=== PATIENT | female | born 2000 | race Two or more races ===

== ENCOUNTER 2021-02-26 09:25 | Emergency (ER) | payer MEDICAID, OTHER ==
[~2021-02-26] VITALS: Ht 160 cm; Wt 59.9 kg
[2021-02-26 09:51] VITALS: BP 139/88
== END 2021-02-26 10:32 | disposition home or self-care (01) ==
LOC: ER 09:25
DX: R10.2 Pelvic and perineal pain (principal); Z30.432 Encounter for removal of intrauterine contraceptive device

== ENCOUNTER 2021-05-28 17:08 | Emergency (ER) | payer MEDICAID ==
[~2021-05-28] VITALS: Ht 160 cm; Wt 57.6 kg
[2021-05-28 19:43] LABS: Basophils # (auto) 0 10 ^3/uL (0-0.2); Basophils % (auto) 0.5 % (0.0-2.0); Eosinophils # (auto) 0.2 10 ^3/uL (0-0.8); Eosinophils % (auto) 1.9 % (0.0-7.0); Hematocrit 38.2 % (36.0-46.0); Hemoglobin 13.2 g/dL (12.2-16.2); Lymphocytes # (auto) 1.8 10 ^3/uL (0.4-5.4); Lymphocytes % (auto) 21.2 % (10.0-50.0); Mean Corpuscular Hemoglobin 30.7 pg (28.0-32.0); Mean Corpuscular Hgb Conc. 34.5 g/dL (32.0-36.0); Monocytes # (auto) 0.5 10 ^3/uL (0-1.3); Monocytes % (auto) 6.3 % (0.0-12.0); Neutrophils % (auto) 70.1 % (37.0-80.0); Nucleated Red Blood Cells % 0.1 %; Red Blood Cells 4.29 10^6/uL (4.0-5.20); Red Cell Distribution Width 14.5 % (11.8-14.3); White Blood Cell 8.5 10^3/uL (4.4-10.8)
[2021-05-28 19:59] LABS: BUN/Creatinine Ratio 15.7; Potassium 3.8 mmol/L (3.5-5.1)
[2021-05-28 22:55] LABS: Urine Bacteria NONE SEEN /hpf (None Seen); Urine Blood Negative /uL (Negative); Urine Specific Gravity 1.001 (1.001-1.035); Urine WBC <1 /hpf (0 - 5)
[2021-05-28 23:15] LABS: Alcohol, Urine < 3.0 mg/dL (0-10); Amphetamine Screen, Urine NEGATIVE (NEGATIVE); Barbiturate Scree,Urine NEGATIVE (NEGATIVE); Benzodiazephine Screen, Urine NEGATIVE (NEGATIVE); Cannabinoid Screen, Urine NEGATIVE (NEGATIVE); Cocaine Screen, Urine NEGATIVE (NEGATIVE); Opiate Scree,Urine NEGATIVE (NEGATIVE); Phencyclidine Screen, Urine NEGATIVE (NEGATIVE)
[2021-05-28 23:53] VITALS: BP 117/79
== END 2021-05-29 01:04 | disposition home or self-care (01) ==
LOC: ER 17:08
DX: R33.9 Retention of urine, unspecified (principal); Z87.442 Personal history of urinary calculi
CPT/HCPCS: 36415; 76775; 80048; 80307; 81001; 84702; 85025

== ENCOUNTER 2021-11-15 13:59 | Inpatient (IN) | payer MEDICAID ==
[~2021-11-15] VITALS: Ht 157.5 cm; Wt 65.0 kg
[2021-11-15 14:46] LABS: Urine Bacteria NONE SEEN /hpf (None Seen); Urine Blood TRACE /uL (Negative); Urine Mucus MODERATE (None Seen); Urine Specific Gravity 1.023 (1.001-1.035); Urine WBC 70 /hpf (0 - 5)
[2021-11-15] MEDS ORDERED: MORPHINE SULFATE 4 MG/ML SYR/VIAL IV STA (15:11)
[2021-11-15] MEDS ORDERED: LACTATED RINGER'S 1,000 ML IV ONE (15:15)
[2021-11-15] MEDS ORDERED: IOHEXOL 300 MG/ML 100ML BOTTLE IJ ONE (15:29)
[2021-11-15 15:30] LABS: Basophils # (auto) 0 10 ^3/uL (0-0.2); Basophils % (auto) 0.3 % (0.0-2.0); Eosinophils # (auto) 0.1 10 ^3/uL (0-0.8); Eosinophils % (auto) 0.5 % (0.0-7.0); Hematocrit 41.4 % (36.0-46.0); Hemoglobin 13.5 g/dL (12.2-16.2); Lymphocytes # (auto) 1.4 10 ^3/uL (0.4-5.4); Lymphocytes % (auto) 11.6 % (10.0-50.0); Mean Corpuscular Hemoglobin 29.2 pg (28.0-32.0); Mean Corpuscular Hgb Conc. 32.7 g/dL (32.0-36.0); Mean Corpuscular Volume 89.3 fL (80.0-100.0); Monocytes # (auto) 0.4 10 ^3/uL (0-1.3); Monocytes % (auto) 3.3 % (0.0-12.0); Neutrophils # (auto) 10.3 10 ^3/uL (1.6-8.6); Neutrophils % (auto) 84.3 % (37.0-80.0); Red Blood Cells 4.63 10^6/uL (4.0-5.20); Red Cell Distribution Width 13.3 % (11.8-14.3); White Blood Cell 12.3 10^3/uL (4.4-10.8)
[2021-11-15 15:42] LABS: Albumin 4.4 g/dL (3.4-5.0); Magnesium 2.3 mg/dL (1.6-2.6); Potassium 4.1 mmol/L (3.5-5.1)
[2021-11-15 15:46] LABS: BUN/Creatinine Ratio 14.7; Bilirubin, Total 0.4 mg/dL (0.2-1.0); Total Protein 8.5 g/dL (6.4-8.2)
[2021-11-15 15:48] LABS: INR 0.94 (0.9-1.15); Partial Thromboplastin Time 27.6 sec (24.6-33.4)
[2021-11-15] MEDS: ONDANSETRON HCL 4 MG/2 ML VIAL IV SCH (15:53)
[2021-11-15] MEDS ORDERED: MORPHINE SULFATE 4 MG/ML SYR/VIAL IV ONE (18:00)
[2021-11-15] MEDS ORDERED: KETOROLAC TROMETH 30 MG/ML 1ML VIAL IV ONE (18:00)
[2021-11-15] MEDS ORDERED: CEFTRIAXONE SODIUM 2 GM in D5W 5% 50 ML IV ONE (19:00)
[2021-11-15] MEDS ORDERED: TAMSULOSIN HYDROCHLORIDE 0.4 MG CAP PO ONE (19:00)
[2021-11-15] MEDS ORDERED: ACETAMINOPHEN 325 MG TAB PO PRN (21:45)
[2021-11-15] MEDS ORDERED: MORPHINE SULFATE INJ 2 MG/ml SYRG IV PRN ×2 (21:45→22:15)
[2021-11-15] MEDS ORDERED: HYDROcodone-ACET 5/325MG TAB PO PRN (21:45)
[2021-11-15] MEDS: SODIUM CHLOR 0.9% PF (SALINE LOCK) 10ML VIAL/SYR IV SCH (22:00)
[2021-11-15] MEDS ORDERED: NITROGLYCERIN 0.4 MG SL TAB SL PRN (22:15)
[2021-11-15 22:59] VITALS: BP 110/66
[2021-11-16] MEDS: ONDANSETRON HCL 4 MG/2 ML VIAL IV SCH ×5 (02:00→17:35)
[2021-11-16 05:00] VITALS: BP 102/61
[2021-11-16 06:31] LABS: Basophils # (auto) 0 10 ^3/uL (0-0.2); Basophils % (auto) 0.3 % (0.0-2.0); Eosinophils # (auto) 0.2 10 ^3/uL (0-0.8); Eosinophils % (auto) 1.9 % (0.0-7.0); Hematocrit 35.6 % (36.0-46.0); Hemoglobin 11.9 g/dL (12.2-16.2); Lymphocytes # (auto) 2.5 10 ^3/uL (0.4-5.4); Mean Corpuscular Hemoglobin 29.7 pg (28.0-32.0); Mean Corpuscular Hgb Conc. 33.5 g/dL (32.0-36.0); Mean Corpuscular Volume 88.4 fL (80.0-100.0); Monocytes # (auto) 0.6 10 ^3/uL (0-1.3); Monocytes % (auto) 7.1 % (0.0-12.0); Neutrophils # (auto) 4.8 10 ^3/uL (1.6-8.6); Neutrophils % (auto) 59.7 % (37.0-80.0); Red Blood Cells 4.02 10^6/uL (4.0-5.20); Red Cell Distribution Width 13.2 % (11.8-14.3); White Blood Cell 8.1 10^3/uL (4.4-10.8)
[2021-11-16 06:48] LABS: Albumin 3.3 g/dL (3.4-5.0); Calcium 8.7 mg/dL (8.5-10.1)
[2021-11-16 06:51] LABS: BUN/Creatinine Ratio 19.7
[2021-11-16 06:53] LABS: Bilirubin, Total 0.4 mg/dL (0.2-1.0); Total Protein 6.3 g/dL (6.4-8.2)
[2021-11-16] MEDS: SODIUM CHLOR 0.9% PF (SALINE LOCK) 10ML VIAL/SYR IV SCH ×2 (06:59→17:12)
[2021-11-16 08:30] VITALS: BP 98/52
[2021-11-16 14:06] VITALS: BP 106/62
[2021-11-16 16:56] VITALS: BP 105/68
[2021-11-16] MEDS: TAMSULOSIN HYDROCHLORIDE 0.4 MG CAP PO SCH (17:35)
[2021-11-16 21:46] VITALS: BP 112/72
[2021-11-17] MEDS: SODIUM CHLOR 0.9% PF (SALINE LOCK) 10ML VIAL/SYR IV SCH ×4 (00:31→21:13)
[2021-11-17] MEDS: ONDANSETRON HCL 4 MG/2 ML VIAL IV SCH ×5 (02:00→18:00)
[2021-11-17 04:49] VITALS: BP 112/74
[2021-11-17 09:00] VITALS: BP 100/56
[2021-11-17] MEDS: cefTRIAXone 1GM/50ML D5W 50 ML IV SCH ×2 (10:26→20:55)
[2021-11-17 13:00] VITALS: BP 110/63
[2021-11-17 17:00] VITALS: BP 117/72
[2021-11-17] MEDS: TAMSULOSIN HYDROCHLORIDE 0.4 MG CAP PO SCH (18:28)
[2021-11-17 22:00] VITALS: BP 118/79
[2021-11-18] VITALS (11 sets, daily range): BP systolic 105–121; BP diastolic 68–83
[2021-11-18] MEDS: ONDANSETRON HCL 4 MG/2 ML VIAL IV SCH ×4 (02:00→14:00)
[2021-11-18 05:14] LABS: Potassium 4.3 mmol/L (3.5-5.1)
[2021-11-18 05:15] LABS: Calcium 8.8 mg/dL (8.5-10.1)
[2021-11-18 05:16] LABS: BUN/Creatinine Ratio 24.6
[2021-11-18] MEDS: SODIUM CHLOR 0.9% PF (SALINE LOCK) 10ML VIAL/SYR IV SCH ×3 (05:21→21:29)
[2021-11-18] MEDS ORDERED: fentaNYL CITRATE 100 MCG/2 ML VL ONE ×2 (11:13→12:08)
[2021-11-18] MEDS ORDERED: IODIXANOL 320MG/ML 100ML BTL IV ONE (11:14)
[2021-11-18] MEDS ORDERED: LIDOCAINE 2%HCL (LOCAL ANESTH.) INJ 20ML MDV ONE (11:14)
[2021-11-18] MEDS ORDERED: MIDAZOLAM HCL 2MG/2ML 2ml VIAL (1mg/ml) ONE ×2 (11:14→12:08)
[2021-11-18] MEDS: cefTRIAXone 1GM/50ML D5W 50 ML IV SCH (18:44)
[2021-11-18] MEDS: TAMSULOSIN HYDROCHLORIDE 0.4 MG CAP PO SCH (18:44)
[2021-11-18] MEDS: HYDROmorphone HCL 2 MG/ML VL/or syr IV PRN (19:01)
[2021-11-18] MEDS: ONDANSETRON HCL 4 MG/2 ML VIAL IV PRN (21:37)
[2021-11-19] MEDS: HYDROmorphone HCL 2 MG/ML VL/or syr IV PRN ×4 (02:50→22:00)
[2021-11-19 05:00] VITALS: BP 102/57
[2021-11-19] MEDS: SODIUM CHLOR 0.9% PF (SALINE LOCK) 10ML VIAL/SYR IV SCH ×3 (05:01→21:57)
[2021-11-19 08:00] VITALS: BP 114/72
[2021-11-19 09:00] VITALS: BP 114/73
[2021-11-19 10:47] LABS: Basophils # (auto) 0 10 ^3/uL (0-0.2); Basophils % (auto) 0.4 % (0.0-2.0); Eosinophils # (auto) 0.2 10 ^3/uL (0-0.8); Eosinophils % (auto) 2.9 % (0.0-7.0); Hemoglobin 12.4 g/dL (12.2-16.2); Lymphocytes # (auto) 2.2 10 ^3/uL (0.4-5.4); Lymphocytes % (auto) 26.1 % (10.0-50.0); Mean Corpuscular Hgb Conc. 33.6 g/dL (32.0-36.0); Mean Corpuscular Volume 89.3 fL (80.0-100.0); Monocytes # (auto) 0.6 10 ^3/uL (0-1.3); Monocytes % (auto) 6.6 % (0.0-12.0); Neutrophils # (auto) 5.4 10 ^3/uL (1.6-8.6); Nucleated Red Blood Cells % 0.1 %; Red Blood Cells 4.14 10^6/uL (4.0-5.20); Red Cell Distribution Width 12.9 % (11.8-14.3); White Blood Cell 8.5 10^3/uL (4.4-10.8)
[2021-11-19 10:52] LABS: Potassium 3.4 mmol/L (3.5-5.1)
[2021-11-19 11:08] LABS: Albumin 3.3 g/dL (3.4-5.0); BUN/Creatinine Ratio 11.9; Bilirubin, Total 0.2 mg/dL (0.2-1.0); Total Protein 7.1 g/dL (6.4-8.2)
[2021-11-19 12:30] VITALS: BP 104/60
[2021-11-19 16:47] VITALS: BP 100/59
[2021-11-19] MEDS: TAMSULOSIN HYDROCHLORIDE 0.4 MG CAP PO SCH (18:20)
[2021-11-19] MEDS: cefTRIAXone 1GM/50ML D5W 50 ML IV SCH (18:20)
[2021-11-19 22:00] VITALS: BP 108/65
[2021-11-19] MEDS: ONDANSETRON HCL 4 MG/2 ML VIAL IV PRN (23:45)
[2021-11-20 05:27] VITALS: BP 106/65
[2021-11-20] MEDS: SODIUM CHLOR 0.9% PF (SALINE LOCK) 10ML VIAL/SYR IV SCH ×3 (06:11→22:00)
[2021-11-20] MEDS: ONDANSETRON HCL 4 MG/2 ML VIAL IV PRN (06:34)
[2021-11-20] MEDS: HYDROmorphone HCL 2 MG/ML VL/or syr IV PRN (06:35)
[2021-11-20 08:30] VITALS: BP 97/57
[2021-11-20 09:00] VITALS: BP 97/57
[2021-11-20] MEDS ORDERED: HYDROcodone-ACET 10/325MG TAB PO PRN (11:45)
[2021-11-20] MEDS ORDERED: KETOROLAC TROMETH 30 MG/ML 1ML VIAL IV PRN (11:45)
[2021-11-20 13:00] VITALS: BP 112/66
[2021-11-20 13:20] LABS: Basophils # (auto) 0 10 ^3/uL (0-0.2); Basophils % (auto) 0.6 % (0.0-2.0); Eosinophils # (auto) 0.3 10 ^3/uL (0-0.8); Eosinophils % (auto) 4.7 % (0.0-7.0); Hematocrit 39.5 % (36.0-46.0); Hemoglobin 13.1 g/dL (12.2-16.2); Lymphocytes # (auto) 2.3 10 ^3/uL (0.4-5.4); Lymphocytes % (auto) 31.1 % (10.0-50.0); Mean Corpuscular Hemoglobin 30.1 pg (28.0-32.0); Mean Corpuscular Hgb Conc. 33.3 g/dL (32.0-36.0); Mean Corpuscular Volume 90.4 fL (80.0-100.0); Monocytes # (auto) 0.5 10 ^3/uL (0-1.3); Monocytes % (auto) 6.5 % (0.0-12.0); Neutrophils # (auto) 4.2 10 ^3/uL (1.6-8.6); Neutrophils % (auto) 57.1 % (37.0-80.0); Nucleated Red Blood Cells % 0.1 %; Red Blood Cells 4.36 10^6/uL (4.0-5.20); Red Cell Distribution Width 13.3 % (11.8-14.3); White Blood Cell 7.4 10^3/uL (4.4-10.8)
[2021-11-20 14:06] LABS: Calcium 8.4 mg/dL (8.5-10.1); Potassium 3.9 mmol/L (3.5-5.1)
[2021-11-20 14:10] LABS: BUN/Creatinine Ratio 14.9
[2021-11-20] MEDS: HYDROcodone-ACET 10/325MG TAB PO PRN ×2 (15:43→20:05)
[2021-11-20] MEDS: SODIUM CHLORIDE 0.9% 1,000 ML IV SCH ×2 (15:44→21:45)
[2021-11-20 17:00] VITALS: BP 117/70
[2021-11-20] MEDS: TAMSULOSIN HYDROCHLORIDE 0.4 MG CAP PO SCH (18:01)
[2021-11-20] MEDS: cefTRIAXone 1GM/50ML D5W 50 ML IV SCH (18:01)
[2021-11-20 21:48] VITALS: BP 119/66
[2021-11-21] MEDS: HYDROcodone-ACET 10/325MG TAB PO PRN ×3 (01:33→17:02)
[2021-11-21 04:48] VITALS: BP 115/51
[2021-11-21] MEDS: SODIUM CHLOR 0.9% PF (SALINE LOCK) 10ML VIAL/SYR IV SCH ×3 (06:12→21:44)
[2021-11-21] MEDS: SODIUM CHLORIDE 0.9% 1,000 ML IV SCH ×2 (07:45→17:01)
[2021-11-21 08:00] VITALS: BP 118/75
[2021-11-21 09:00] VITALS: BP 118/75
[2021-11-21] MEDS ORDERED: LACTULOSE 20Gm/30ML SOLN PO ONE (10:45)
[2021-11-21] MEDS ORDERED: ZOLPIDEM TARTRATE 5 MG TAB PO PRN (10:45)
[2021-11-21] MEDS ORDERED: DOCUSATE SOD 100 MG CAP PO ONE (10:45)
[2021-11-21] MEDS ORDERED: HYDROcodone-ACET 10/325MG TAB PO PRN (11:00)
[2021-11-21] MEDS: KETOROLAC TROMETH 30 MG/ML 1ML VIAL IV PRN ×2 (12:54→18:40)
[2021-11-21 13:00] VITALS: BP 108/79
[2021-11-21 17:00] VITALS: BP 111/69
[2021-11-21] MEDS: TAMSULOSIN HYDROCHLORIDE 0.4 MG CAP PO SCH (18:31)
[2021-11-21] MEDS: cefTRIAXone 1GM/50ML D5W 50 ML IV SCH (18:40)
[2021-11-21] MEDS ORDERED: SODIUM CHLORIDE 0.9% 1,900 ML IV ONE (19:00)
[2021-11-21] MEDS: DOCUSATE SOD 100 MG CAP PO SCH (21:44)
[2021-11-21 22:00] VITALS: BP 110/71
[2021-11-22] MEDS: SODIUM CHLORIDE 0.9% 1,000 ML IV SCH ×2 (00:15→15:09)
[2021-11-22] MEDS: KETOROLAC TROMETH 30 MG/ML 1ML VIAL IV PRN ×4 (01:02→21:24)
[2021-11-22 05:00] VITALS: BP 104/65
[2021-11-22] MEDS: SODIUM CHLOR 0.9% PF (SALINE LOCK) 10ML VIAL/SYR IV SCH ×3 (05:25→21:24)
[2021-11-22 06:31] LABS: Basophils # (auto) 0 10 ^3/uL (0-0.2); Basophils % (auto) 0.6 % (0.0-2.0); Eosinophils # (auto) 0.4 10 ^3/uL (0-0.8); Hematocrit 34.2 % (36.0-46.0); Hemoglobin 11.4 g/dL (12.2-16.2); Lymphocytes # (auto) 1.8 10 ^3/uL (0.4-5.4); Lymphocytes % (auto) 28.4 % (10.0-50.0); Mean Corpuscular Hgb Conc. 33.5 g/dL (32.0-36.0); Mean Corpuscular Volume 89.5 fL (80.0-100.0); Monocytes # (auto) 0.4 10 ^3/uL (0-1.3); Monocytes % (auto) 6.9 % (0.0-12.0); Neutrophils # (auto) 3.6 10 ^3/uL (1.6-8.6); Neutrophils % (auto) 57.1 % (37.0-80.0); Red Blood Cells 3.82 10^6/uL (4.0-5.20); Red Cell Distribution Width 13.3 % (11.8-14.3); White Blood Cell 6.3 10^3/uL (4.4-10.8)
[2021-11-22 07:00] LABS: Potassium 4.2 mmol/L (3.5-5.1)
[2021-11-22 07:04] LABS: BUN/Creatinine Ratio 17.3; Calcium 8.2 mg/dL (8.5-10.1)
[2021-11-22] MEDS: DOCUSATE SOD 100 MG CAP PO SCH ×2 (08:58→21:24)
[2021-11-22 09:00] VITALS: BP 114/76
[2021-11-22] MEDS: HYDROcodone-ACET 10/325MG TAB PO PRN ×2 (10:17→17:08)
[2021-11-22 13:00] VITALS: BP 112/75
[2021-11-22 16:59] VITALS: BP 96/48
[2021-11-22] MEDS: TAMSULOSIN HYDROCHLORIDE 0.4 MG CAP PO SCH (18:00)
[2021-11-22] MEDS: cefTRIAXone 1GM/50ML D5W 50 ML IV SCH (18:00)
[2021-11-22 22:00] VITALS: BP 112/66
[2021-11-23] MEDS: HYDROcodone-ACET 10/325MG TAB PO PRN ×4 (00:35→20:28)
[2021-11-23] MEDS: SODIUM CHLORIDE 0.9% 1,000 ML IV SCH ×3 (00:40→20:32)
[2021-11-23] MEDS: KETOROLAC TROMETH 30 MG/ML 1ML VIAL IV PRN ×4 (03:42→23:15)
[2021-11-23 05:00] VITALS: BP 105/65
[2021-11-23] MEDS: SODIUM CHLOR 0.9% PF (SALINE LOCK) 10ML VIAL/SYR IV SCH ×3 (05:03→20:32)
[2021-11-23 05:20] LABS: Basophils # (auto) 0 10 ^3/uL (0-0.2); Basophils % (auto) 0.5 % (0.0-2.0); Eosinophils # (auto) 0.4 10 ^3/uL (0-0.8); Eosinophils % (auto) 6.7 % (0.0-7.0); Hematocrit 33.1 % (36.0-46.0); Hemoglobin 11.3 g/dL (12.2-16.2); Lymphocytes # (auto) 2.3 10 ^3/uL (0.4-5.4); Lymphocytes % (auto) 33.9 % (10.0-50.0); Mean Corpuscular Hemoglobin 30.6 pg (28.0-32.0); Mean Corpuscular Hgb Conc. 34.2 g/dL (32.0-36.0); Mean Corpuscular Volume 89.4 fL (80.0-100.0); Monocytes # (auto) 0.4 10 ^3/uL (0-1.3); Monocytes % (auto) 6.7 % (0.0-12.0); Neutrophils # (auto) 3.5 10 ^3/uL (1.6-8.6); Neutrophils % (auto) 52.2 % (37.0-80.0); Nucleated Red Blood Cells % 0.2 %; Red Blood Cells 3.71 10^6/uL (4.0-5.20); Red Cell Distribution Width 13.3 % (11.8-14.3); White Blood Cell 6.7 10^3/uL (4.4-10.8)
[2021-11-23 05:46] LABS: Calcium 8.1 mg/dL (8.5-10.1)
[2021-11-23 05:49] LABS: BUN/Creatinine Ratio 15.7
[2021-11-23 09:00] VITALS: BP 114/73
[2021-11-23] MEDS: DOCUSATE SOD 100 MG CAP PO SCH ×2 (09:04→20:28)
[2021-11-23] MEDS: ONDANSETRON HCL 4 MG/2 ML VIAL IV PRN (09:12)
[2021-11-23 13:00] VITALS: BP 98/58
[2021-11-23 17:00] VITALS: BP 115/70
[2021-11-23] MEDS: TAMSULOSIN HYDROCHLORIDE 0.4 MG CAP PO SCH (17:14)
[2021-11-23] MEDS: cefTRIAXone 1GM/50ML D5W 50 ML IV SCH (17:14)
[2021-11-23 21:30] VITALS: BP 115/70
[2021-11-24] MEDS: HYDROcodone-ACET 10/325MG TAB PO PRN ×2 (02:28→09:30)
[2021-11-24 05:00] VITALS: BP 99/58
[2021-11-24] MEDS: KETOROLAC TROMETH 30 MG/ML 1ML VIAL IV PRN (05:26)
[2021-11-24] MEDS: SODIUM CHLORIDE 0.9% 1,000 ML IV SCH (05:36)
[2021-11-24] MEDS: SODIUM CHLOR 0.9% PF (SALINE LOCK) 10ML VIAL/SYR IV SCH (05:37)
[2021-11-24] MEDS: DOCUSATE SOD 100 MG CAP PO SCH (08:44)
[2021-11-24 09:00] VITALS: BP 114/73
[2021-11-24] MEDS ORDERED: LACTULOSE 20Gm/30ML SOLN PO ONE (10:00)
[2021-11-24] MEDS ORDERED: DOCUSATE SOD 100 MG CAP PO ONE (10:00)
[2021-11-24] MEDS ORDERED: DOCUSATE SOD 100 MG CAP PO SCH (22:00)
== END 2021-11-24 11:45 | disposition home or self-care (01) | DRG 463 ==
LOC: ER 13:59 → OVERFLOW 22:15 → CENTRAL 22:59
PROVIDERS: ADMIT Nurse Practitioner Family; ATTEND Internal Medicine
PROC: 0T9730Z Drainage of Left Ureter with Drainage Device, Percutaneous Approach (ICD-10-PCS; principal; 2021-11-18)
DX: N13.6 Pyonephrosis (principal); R65.10 Systemic inflammatory response syndrome (SIRS) of non-infectious origin without acute organ dysfunction; K59.00 Constipation, unspecified; Z20.822 Contact with and (suspected) exposure to COVID-19; R73.9 Hyperglycemia, unspecified; E66.3 Overweight; Z93.6 Other artificial openings of urinary tract status; Z83.3 Family history of diabetes mellitus; Z68.25 Body mass index [BMI] 25.0-25.9, adult
CPT/HCPCS: 36415; 50432; 74018; 74176; 74177; 74425; 76775; 76942; 80048; 80053; 81001; 81025; 83036; 83605; 83735; 85025; 85610; 85730; 87086; 96361; 96365; 96375; 96376; 99152; 99153; G0378; J0696; J1885; J2250; J2405; J7060; Q9967